=== PATIENT | female | born 1985 | race Native Hawaiian/Other Pacific Islander ===

== ENCOUNTER 2019-10-14 09:11 | Outpatient (CLI) | payer OTHER | END 2019-10-14 22:35 | disposition home or self-care (01) | LOC: US 09:11 | DX: N92.0 Excessive and frequent menstruation with regular cycle (principal) ==

== ENCOUNTER 2020-05-22 10:57 | Outpatient (CLI) | payer OTHER | END 2020-05-22 22:10 | disposition home or self-care (01) | LOC: CT 10:57 | PROVIDERS: ATTEND Family Medicine | DX: R10.31 Right lower quadrant pain (principal) | CPT/HCPCS: Q9963 ==

== ENCOUNTER 2020-07-27 10:51 | Outpatient (CLI) | payer OTHER | END 2020-07-27 20:08 | disposition home or self-care (01) | LOC: RAD 10:51 | PROVIDERS: ATTEND Nurse Practitioner Family | DX: M54.12 Radiculopathy, cervical region (principal) ==

== ENCOUNTER 2021-03-19 11:10 | Outpatient (CLI) | payer BC | END 2021-03-19 20:03 | disposition home or self-care (01) | LOC: RESP 11:10 | PROVIDERS: ATTEND Family Medicine | DX: R55 Syncope and collapse (principal) ==

== ENCOUNTER 2021-04-20 11:50 | Outpatient (CLI) | payer BC | END 2021-04-20 21:03 | disposition home or self-care (01) | LOC: RAD 11:50 | PROVIDERS: ATTEND Neurological Surgery | DX: M54.12 Radiculopathy, cervical region (principal) ==

== ENCOUNTER 2021-08-03 11:03 | Outpatient (CLI) | payer BC | END 2021-08-03 19:58 | disposition home or self-care (01) | LOC: RAD 11:03 | PROVIDERS: ATTEND Nurse Practitioner Primary Care | DX: M54.6 Pain in thoracic spine (principal) ==